=== PATIENT | male | born 1975 | race Caucasian/White ===

== ENCOUNTER 2023-02-16 09:17 | Outpatient (OUT) | payer BC, OTHER, SELFPAY ==
--- NOTE | 2023-02-16 09:42 | XR_ITS ---
[facility] [id number] Patient Name: MYRA DUPREE MRN: [id number] date: 1975 Sex: M Assigned Patient Location: [facility] Current Patient Location: [facility] Accession/Order Number: [id number] Exam Date: 02/16/2023 09:41 Report Date: 02/16/2023 12:19 At the request of: THOMAS RENE Procedure: XR foot LT min 3V PROCEDURE: XR foot LT min 3V HISTORY: LEFT FOOT PAIN ; lateral foot pain, fourth and fifth toe pain COMPARISON: None. FINDINGS: BONES:No fracture, acute abnormality, or significant arthropathy. SOFT TISSUES:No visible soft tissue swelling. EFFUSION:None visible. OTHER: Negative. XR/XR foot LT min 3V IMPRESSION: 1. No acute bone abnormality or appreciable degenerative joint disease. Electronically authenticated by: RODO DEY Date: 02/16/2023 12:19
== END 2023-02-16 09:18 | disposition home or self-care (01) ==
LOC: RAD 09:18
PROVIDERS: Visit Provider Physician Assistant
DX: M79.672 Pain in left foot (principal)
CPT/HCPCS: 73630